=== PATIENT | female | born 1970 | race Caucasian/White ===

== ENCOUNTER 2017-06-15 09:06 | Emergency (ER) | payer OTHER ==
[2017-06-15] MEDS: KETOROLAC 15 MG INJ IM (09:37)
== END 2017-06-15 09:48 | disposition home or self-care (01) ==
LOC: FTE 09:06
DX: M54.41 Lumbago with sciatica, right side (principal)
CPT/HCPCS: 96372; 99284-25

== ENCOUNTER 2018-04-26 09:39 | Emergency (ER) | payer OTHER ==
[2018-04-26] MEDS: IBUPROFEN 600 MG TAB PO (10:46)
[2018-04-26] MEDS: GUAIFENESIN/DM 5ML CUP PO (10:54)
[2018-04-26] MEDS: KETOROLAC 30 MG INJ IM (11:35)
== END 2018-04-26 11:55 | disposition home or self-care (01) ==
LOC: FTE 11:55
DX: M54.6 Pain in thoracic spine (principal)
CPT/HCPCS: 81025; 96372; 99284-25